=== PATIENT | female | born 1980 | race Two or more races ===

== ENCOUNTER 2019-11-28 12:19 | Outpatient (CLI) | payer OTHER | END 2019-11-28 12:26 | disposition home or self-care (01) | LOC: RAD 12:19 | PROVIDERS: ATTEND Specialist | DX: M54.2 Cervicalgia (principal) ==

== ENCOUNTER 2019-12-02 15:17 | Emergency (ER) | payer OTHER ==
[~2019-12-02] VITALS: Ht 154.9 cm; Wt 47.2 kg
== END 2019-12-02 17:04 | disposition home or self-care (01) ==
LOC: ER 15:17
DX: R00.2 Palpitations (principal); F06.4 Anxiety disorder due to known physiological condition

== ENCOUNTER 2020-01-18 16:19 | Outpatient (CLI) | payer OTHER | END 2020-01-18 16:27 | disposition home or self-care (01) | LOC: RAD 16:19 | PROVIDERS: ATTEND Physical Medicine & Rehabilitation | DX: M47.892 Other spondylosis, cervical region (principal); M47.896 Other spondylosis, lumbar region ==